=== PATIENT | female | born 1980 | race Caucasian/White ===

== ENCOUNTER 2017-01-25 11:14 | Emergency (ER) | payer OTHER ==
[2017-01-25 12:02] VITALS: BP 114/76
--- NOTE | 2017-01-25 12:29 | UC ---
Throat Pain/Nasal [place] HPI - HPI Summary HPI Summary: sore throat sinus pain and congestion, ear pressure approaching 1 week - History of Current Complaint Chief Complaint: UCRespiratory Stated Complaint: THROAT PAIN Time Seen by Provider: 01/25/17 12:18 Hx Obtained From: Patient ?: No Onset/Duration: Gradual Onset, Lasting Days, Still Present - 7+ Severity: Moderate Pain Intensity: 5 Pain Scale Used: 0-10 Numeric Cough: Productive Associated Signs & Symptoms: Positive: Hoarseness, Sinus Discomfort, Nasal Discharge, Fever - Allergies/Home Medications Allergies/Adverse Reactions: Allergies Allergy/AdvReac Type Severity Reaction Status Date / Time No Known Allergies Allergy Verified 01/25/17 12:01 Home Medications: Home Medications Control 1 01/25/17 [History] Cholecalciferol [Vitamin D] 1,000 unit PO 01/25/17 [History] Cyanocobalamin TAB* [Vitamin B12 TAB*] 500 mcg PO DAILY 01/25/17 [History Confirmed 01/25/17] Inulin-Cholecalciferol [Fiber/D3 Adult Gummies 2.5-500 gm-Unit] 1 chw PO [History] ValACYclovir (*) [Valtrex 1 GM(*)] 1 gm PO DAILY 01/25/17 [History Confirmed ] PMH/Surg Hx/FS Hx/Imm Hx Previously Healthy: Yes Endocrine History Of: Denies: Diabetes, Thyroid Disease Cardiovascular History Of: Denies: Cardiac Disorders, Hypertension Respiratory History Of: Denies: COPD, Asthma GI/ History Of: Denies: Ulcer - Surgical History Surgical History: Yes Surgery Procedure, Year, and Place: 2 cysts removed, keloids - Family History Known Family History: Positive: None Family History: no cardovascular issues reported in family lineage - Social History Occupation: Employed Full-time Lives: With Family Alcohol Use: None Substance Use Type: None Smoking Status (MU): Never Smoked Tobacco Review of Systems Constitutional: Negative, Chills, Fatigue Skin: Negative Eyes: Negative ENT: Sore Throat, Ear Ache, Nasal Discharge Respiratory: Cough Cardiovascular: Negative Gastrointestinal: Negative Genitourinary: Negative Motor: Negative Neurovascular: Negative Musculoskeletal: Negative Neurological: Negative Psychological: Negative All Other Systems Reviewed And Are Negative: Yes Physical Exam Triage Information Reviewed: Yes Appearance: Well-Appearing, No Pain Distress, Well-Nourished Vital Signs: Initial Vital Signs Temp 98.4 F 01/25/17 11:57 Pulse 77 01/25/17 11:57 Resp 18 01/25/17 11:57 BP 114/76 01/25/17 11:57 Pulse Ox 99 01/25/17 11:57 Vital Signs Reviewed: Yes Eye Exam: Normal Eyes: Positive: Conjunctiva Clear ENT Exam: Normal ENT: Positive: Normal ENT inspection, Hearing grossly normal, Pharynx normal, Nasal congestion, Nasal drainage, TMs normal. Negative: Tonsillar swelling, Tonsillar exudate, Trismus, Muffled/hoarse voice Dental Exam: Normal Neck exam: Normal Neck: Positive: Supple, Nontender, No Lymphadenopathy Respiratory Exam: Normal Respiratory: Positive: Chest non-tender, Lungs clear, Normal breath sounds, No respiratory distress, No accessory muscle use Cardiovascular Exam: Normal Cardiovascular: Positive: RRR, No Murmur, Pulses Normal, Brisk Capillary Refill Musculoskeletal Exam: Normal Musculoskeletal: Positive: Strength Intact, ROM Intact, No Edema Neurological Exam: Normal Neurological: Positive: Alert, Muscle Tone Normal Psychological Exam: Normal Skin Exam: Normal Throat Pain/Nasal Course/Dx - Course Assessment/Plan: Floase, mucinex d, augmentin, increase fluids, follow with pcp re-check prn - Differential Dx/Diagnosis Differential Diagnosis/HQI/PQRI: Laryngitis, Pharyngitis, Sinusitis, URI Provider Diagnoses: Acute Rhinnosinusitis Discharge - Discharge Plan Condition: Stable Disposition: HOME Prescriptions: Amoxicillin/Clavulanate TAB* [Augmentin TAB 875*] 875 mg PO BID #20 tab Fluconazole 150 MG (NF) [Diflucan 150 mg (NF)] 150 mg PO ONCE #1 tab Fluticasone NASAL SPRAY 50MCG* [Flonase NASAL SPRAY 50MCG*] 2 spray BOTH NARES DAILY #1 btl Patient Education Materials: Laryngitis (ED), How to Use [facility] (ED) Referrals: Basilia Franco MD [Primary Care Provider] - If Needed
== END 2017-01-25 12:42 | disposition home or self-care (01) ==
LOC: UCEAST 11:14
DX: J01.90 Acute sinusitis, unspecified (principal)
CPT/HCPCS: 99212; G0463